=== PATIENT | female | born 1970 | race Caucasian/White ===

== ENCOUNTER 2021-02-13 14:15 | Emergency (ER) | payer BC, OTHER ==
[2021-02-13] MEDS ORDERED: SODIUM CHLORIDE 0.9% 1,000 ML IV STA (16:27)
[2021-02-13 16:57] LABS: Basophils # (A) 0.1 k/uL (0-0.2); Basophils % (A) 1 %; Eosinophils # (A) 0.3 k/uL (0-0.7); Eosinophils % (A) 2 %; HCT 46.5 % (34.0-46.0); Lymphocytes # (A) 2.8 k/uL (1.0-4.8); Lymphocytes % (A) 23 %; MCH 33.1 pg (25.0-35.0); MCHC 34.4 g/dL (31.0-37.0); MCV 96.2 fL (80.0-100.0); Mean Platelet Volume 7.8; Monocytes # (A) 0.5 k/uL (0-1.0); Monocytes % (A) 4 %; Neutrophils # (A) 8.5 k/uL (1.3-7.7); Neutrophils % (A) 69 %; Platelet Count 267 k/uL (150-450); RBC 4.84 m/uL (3.80-5.40); RDW 12.6 % (11.5-15.5); WBC 12.3 k/uL (3.8-10.6)
[2021-02-13] MEDS ORDERED: MECLIZINE 12.5 MG TAB PO STA (17:00)
[2021-02-13] MEDS ORDERED: ONDANSETRON 4 MG/2 ML VIAL IVP STA (17:00)
[2021-02-13 17:08] LABS: ALT 13 U/L (4-34); AST 33 U/L (14-36); African American GFR (CKD) >90 (>60 ml/min/1.73 sqM); Albumin 4.7 g/dL (3.5-5.0); Alkaline Phosphatase 78 U/L (38-126); Anion Gap 10 mmol/L; Blood Urea Nitrogen 11 mg/dL (7-17); Calcium 9.9 mg/dL (8.4-10.2); Carbon Dioxide 23 mmol/L (22-30); Chloride 106 mmol/L (98-107); Glucose 90 mg/dL (74-99); Non-African American GFR(CKD) >90 (>60 ml/min/1.73 sqM); Sodium 139 mmol/L (137-145); Total Bilirubin 0.7 mg/dL (0.2-1.3); Total Protein 8.1 g/dL (6.3-8.2)
--- NOTE | 2021-02-13 17:29 | CT ---
EXAMINATION TYPE: CT brain wo con DATE OF EXAM: 02/13/2021 HISTORY: Dizziness.. CT DLP: 1145.4 mGycm. Automated Exposure Control for Dose Reduction was Utilized. TECHNIQUE: CT scan of the head is performed without contrast. COMPARISON: None FINDINGS: There is no acute intracranial hemorrhage, midline shift, or mass effect identified. No extra-axial f luid collection. No ventriculomegaly. No depressed calvarial fracture. Mastoid air cells and paranasa l sinuses are well aerated. IMPRESSION: No acute intracranial hemorrhage, midline shift, or mass effect.
--- NOTE | 2021-02-13 17:33 | ED ---
Dizziness HPI - General Chief Complaint: Dizziness Stated Complaint: dizziness Time Seen by Provider: 02/13/21 16:20 Source: patient, RN notes reviewed Mode of arrival: ambulatory Limitations: no limitations - History of Present Illness Initial Comments: This a 50-year-old female presents emergency Department from PCPs office chief complaint dizziness. She's been having on and off dizziness spells over the last week. She states that is brought on by movements especially looking up quickly, laying down quickly. Patient states she gets really dizzy and which shows spins, she does extend past out. She has no associated chest pain, blurred vision, focal weakness, vomiting she has had some nausea no history of vertigo denies any current headache. Patient denies any trauma. - Related Data Home Medications Medication Instructions Recorded Confirmed Doxepin [SINEquan] 10 mg PO DAILY 02/13/21 02/13/21 Ibuprofen [Motrin Ib] 800 mg PO Q8H PRN 02/13/21 02/13/21 Mirtazapine [Remeron] 30 mg PO HS 02/13/21 02/13/21 Previous Rx's Medication Instructions Recorded Meclizine [Antivert] 25 mg PO TID PRN #15 tab 02/13/21 Allergies Allergy/AdvReac Type Severity Reaction Status Date / Time Penicillins Allergy Unknown Verified 02/13/21 16:54 Childhood Review of Systems ROS Statement: Those systems with pertinent positive or pertinent negative responses have been documented in the HPI. ROS Other: All systems not noted in ROS Statement are negative. Past Medical History Past Medical History: Asthma History of Any Multi-Drug Resistant Organisms: None Reported Past Surgical History: Section, Tubal Ligation Past Psychological History: Anxiety, Depression Smoking Status: Current every day smoker Past Alcohol Use History: Occasional Past Drug Use History: Marijuana General Exam Limitations: no limitations General appearance: alert, in no apparent distress Head exam: Present: atraumatic, normocephalic, normal inspection Eye exam: Present: normal appearance, PERRL, EOMI. Absent: scleral icterus, conjunctival injection, periorbital swelling ENT exam: Present: normal exam, normal oropharynx, mucous membranes moist Neck exam: Present: normal inspection, full ROM. Absent: tenderness, meningismus, lymphadenopathy Respiratory exam: Present: normal lung sounds bilaterally. Absent: respiratory distress, wheezes, rales, rhonchi, stridor Cardiovascular Exam: Present: regular rate, normal rhythm, normal heart sounds. Absent: systolic murmur, diastolic murmur, rubs, gallop, clicks Neurological exam: Present: alert, oriented X3, CN II-XII intact, reflexes normal. Absent: motor sensory deficit Skin exam: Present: warm, dry, intact, normal color. Absent: rash Course Vital Signs 02/13/21 02/13/21 15:06 16:04 Temperature 98 F Pulse Rate 87 93 Respiratory 20 18 Rate Blood Pressure 150/98 165/89 O2 Sat by Pulse 99 98 Oximetry EKG Findings - EKG Comments: EKG Findings:: EKG performed at 15:23 normal sinus rhythm rate of 75 MS 148 QRS 106 QTC is QTC 400 [id number] Medical Decision Making - Medical Decision Making 30-year-old female presented for intermittent dizziness. Patient symptoms are exacerbated by movements. Patient has a normal neuro exam and H is [address] unremarkable labs unremarkable. Patient we discharged with Antivert. - Lab Data Result diagrams: 02/13/21 16:40 02/13/21 16:40 Lab Results 02/13/21 02/13/21 02/13/21 Range/Units 16:40 16:40 16:40 WBC 12.3 H (3.8-10.6) k/uL RBC 4.84 (3.80-5.40) m/uL Hgb 16.0 (11.4-16.0) gm/dL Hct 46.5 H (34.0-46.0) % MCV 96.2 (80.0-100.0) fL MCH 33.1 (25.0-35.0) pg MCHC 34.4 (31.0-37.0) g/dL RDW 12.6 (11.5-15.5) % Plt Count 267 (150-450) k/uL MPV 7.8 Neutrophils % 69 % Lymphocytes % 23 % Monocytes % 4 % Eosinophils % 2 % Basophils % 1 % Neutrophils # 8.5 H (1.3-7.7) k/uL Lymphocytes # 2.8 (1.0-4.8) k/uL Monocytes # 0.5 (0-1.0) k/uL Eosinophils # 0.3 (0-0.7) k/uL Basophils # 0.1 (0-0.2) k/uL Sodium 139 (137-145) mmol/L Potassium 4.0 (3.5-5.1) mmol/L Chloride 106 (98-107) mmol/L Carbon Dioxide 23 (22-30) mmol/L Anion Gap 10 mmol/L BUN 11 (7-17) mg/dL Creatinine 0.68 (0.52-1.04) mg/dL Est GFR (CKD-EPI)AfAm >90 (>60 ml/min/1.73 sqM) Est GFR (CKD-EPI)NonAf >90 (>60 ml/min/1.73 sqM) Glucose 90 (74-99) mg/dL Calcium 9.9 (8.4-10.2) mg/dL Total Bilirubin 0.7 (0.2-1.3) mg/dL AST 33 (14-36) U/L ALT 13 (4-34) U/L Alkaline Phosphatase 78 (38-126) U/L Troponin I <0.012 (0.000-0.034) ng/mL Total Protein 8.1 (6.3-8.2) g/dL Albumin 4.7 (3.5-5.0) g/dL Disposition Clinical Impression: Vertigo Disposition: HOME SELF-CARE Condition: Stable Instructions (If sedation given, give patient instructions): Vertigo (ED) Additional Instructions: Please return to the Emergency Department if symptoms worsen or any other concerns. Prescriptions: Meclizine [Antivert] 25 mg PO TID PRN #15 tab PRN Reason: Vertigo Is patient prescribed a controlled substance at d/c from ED?: No Referrals: Lan Ramírez MD [Primary Care Provider] - 1-2 days Time of Disposition: 17:58
[2021-02-13 18:08] VITALS: BP 142/87; PULSE 76; RESP 16; TEMP 98.4
[2021-02-13 18:34] LABS: Appearance,Urine Clear (Clear); Bilirubin,Urine Negative (Negative); Blood,Urine Small (Negative); Color,Urine Light Yellow; Glucose,Urine (UA) Negative (Negative); Ketones,Urine Negative (Negative); Leukocyte Esterase,Urine Negative (Negative); Nitrite,Urine Negative (Negative); Protein,Urine Negative (Negative); RBC,Urine 3 /hpf (0-5); Specific Gravity,Urine 1.005 (1.001-1.035); Squamous Epithelial Cell,Urine <1 /hpf (0-4); Urobilinogen,Urine <2.0 mg/dL (<2.0)
== END 2021-02-13 18:10 | disposition home or self-care (01) ==
LOC: EC 14:15
DX: R42 Dizziness and giddiness (principal); J45.909 Unspecified asthma, uncomplicated; F41.9 Anxiety disorder, unspecified; F32.9 Major depressive disorder, single episode, unspecified; F17.200 Nicotine dependence, unspecified, uncomplicated; F12.90 Cannabis use, unspecified, uncomplicated; Z88.0 Allergy status to penicillin; Z98.51 Tubal ligation status
CPT/HCPCS: 99284; 96374; 96361; 36415; 93005; 80053; 84484; 85025; 81001; 70450; J2405

== ENCOUNTER → 2024-04-06 | Outpatient (CLI) | payer OTHER ==
--- NOTE | 2024-04-06 11:03 | MM ---
Reason for Exam: Screening (asymptomatic). Last mammogram was performed 10 year(s) and 4 month(s) ago. Patient History: Menarche at age 10. First Full-Term at age 27. Postmenopausal. Risk Values: Ana 5 year model risk: 1.4%. NCI Lifetime model risk: 10.1%. Prior Study Comparison: 12/10/2013 Bilateral Screening Mammogram, [facility]. Tissue Density: The breasts are heterogeneously dense, which may obscure small masses. Findings: Analyzed By CAD. Right breast: There is no suspicious group of microcalcifications or new suspicious mass. Left breast: There is no suspicious group of microcalcifications or new suspicious mass. Overall Assessment: Negative, BI-RAD 1 Management: Screening Mammogram of both breasts in [address] [facility] will attempt to contact patient to return for supplemental views and ultrasound if indicated. Patient should continue monthly self-breast exams. A clinical breast exam by your physician is recommended on an annual basis. This exam should not preclude additional follow-up of suspicious palpable abnormalities. Note on Ana scores and lifetime risk: 1. A Ana score greater than 3% is considered moderate risk. If this is the case, consider specialist referral to assess eligibility for a risk reducing agent. 2. If overall lifetime risk for the development of breast cancer is 20% or higher, the patient may qualify for future screening with alternating mammogram and breast MRI. [facility], , 04/06/2024 11:01 AM. Electronically signed and approved by: Kenneth Menendez DO
--- NOTE | 2024-04-06 11:10 | CTL ---
EXAMINATION TYPE: CT Low Dose Lung DATE OF EXAM: 04/06/2024 9:43 AM CLINICAL INDICATION: Female, 53 years old with history of Z12.2 LUNG CA SCR F17.210 CURRENT; current smoker 1/2-1PPD x40 years, history of tobacco use. COMPARISON: None. TECHNIQUE: Multiple axial non-contrast scans were obtained from approximately the lung apices through the upper abdomen. Coronal and sagittal reformatted images were obtained. Low dose technique was uti lized. MIP were created on a separate workstation and submitted for review. CT DLP: 59 mGycm, Automated exposure control for dose reduction was used. CT Contrast: Contrast used: None Oral contrast used: None FINDINGS: Lack of intravenous contrast and low dose technique limits the evaluation of the vascular and soft ti ssue structures. LUNGS: No evidence of pulmonary fibrosis. No evidence of focal consolidation, pneumothorax or pleural effusion. Centrilobular emphysema changes. Nodules: RUL: None. RML: None. RLL: None. ARELY: There is solid nodule measuring 5 mm with some groundglass around the periphery. Image 16. LLL: None. AIRWAY: Patent and unremarkable. HEART: Size within normal limits. MEDIASTINUM: No gross evidence of adenopathy. VASCULATURE: No aortic aneurysm. MUSCULOSKELETAL: No acute osseous abnormalities SOFT TISSUES/LYMPH NODES: Unremarkable. LOWER NECK: No significant findings. UPPER ABDOMEN: No significant findings. IMPRESSION: 1. Left upper lobe 5 mm nodule with groundglass opacities along the periphery. Follow-up in 6 months recommended to ensure stability.. 2. Mild emphysema. CT LUNG RAD AND CT CHEST RECOMMENDATION: Lung-Rad 3 Probably Benign: 6 month follow-up LDCT. S Modifier (other clinically significant findings): None Recommend smoking cessation (if current smoker), or continuation of smoking cessation (if prior smoke r). Annual screening for lung cancer with low-dose computed tomography is recommended in adults ages 55 to 77 years who have a 30 pack-year smoking history and currently smoke or have quit within the pa st 15 years. Screening should be discontinued once a person has not smoked for 15 years or develops a health problem that substantially limits life expectancy or the ability or willingness to have curat xu lung surgery. Lung rads 2021 [email or web address] [facility], , 04/06/2024 11:07 AM
--- NOTE | 2024-04-06 11:50 | US ---
EXAMINATION TYPE: US carotid duplex BILAT DATE OF EXAM: 04/06/2024 COMPARISON: NONE CLINICAL INDICATION: Female, 53 years old with history of Z91.89 OTHER SPECIFIED PERSONAL RISK FACTOR S; vertigo Additional History: R42* Dizziness TECHNIQUE: Grayscale, color Doppler and spectral Doppler evaluation of the bilateral carotid systems and vertebral arteries.Indirect Doppler criteria was utilized. FINDINGS: EXAM MEASUREMENTS: RIGHT: Peak Systolic Velocity (PSV) cm/sec ----- Right CCA: 99.7 ----- Right ICA: 120 ----- Right ECA: 332.4 ICA/CCA ratio: 1.2 RIGHT: End Diastole cm/sec ----- Right CCA: 35.7 ----- Right ICA: 54.6 ----- Right ECA: 91.7 LEFT: Peak Systolic Velocity (PSV) cm/sec ----- Left CCA: 92 ----- Left ICA: 120.5 ----- Left ECA: 115.7 ICA/CCA ratio: 1.3 LEFT: End Diastole cm/sec ----- Left CCA: 35.2 ----- Left ICA: 39.7 ----- Left ECA: 28.4 VERTEBRALS (direction of flow): Right Vertebral: Antegrade Left Vertebral: Antegrade Rhythm: Normal [employer] NOTES: No significant stenosis seen IMPRESSION: Right: Less than 50% stenosis of the carotid bifurcation. Normal (no stenosis)=ICA PSV < 125 cm/s: ra rowena < 2.0: ICA EDV<40 cm/s. Left: Less than 50% stenosis of the carotid bifurcation. Normal (no stenosis)=ICA PSV < 125 cm/s: rat io < 2.0: ICA EDV<40 cm/s. Criteria for Assigning % of Stenosis / Diameter reduction (Estimation based on the indirect measurements of the internal carotid artery velocities (ICA PSV). 1. Normal (no stenosis)=ICA PSV < 125 cm/s: ratio < 2.0: ICA EDV<40 cm/s. 2. Less than 50% stenosis=ICA PSV < 125 cm/s: ratio < 2.0: ICA EDV<40 cm/s. 3. 50 to 69% stenosis=ICA PSV of 125 to 230 cm/s: ration 2.0 ? 4.0: ICA EDV 40-100 cm/s. 4. Greater than 70% stenosis to near occlusion= ICA PSV > 230 cm/s: ratio > 4.0: ICA EDV > 100 cm/s. 5. Near occlusion= ICA PSV velocities may be low or undetectable: variable ratio and ICA EDV. 6. Total occlusion=unable to detect flow. [facility], , 04/06/2024 11:48 AM
== END | disposition home or self-care (01) ==
LOC: RADCTMAIN 09:03
PROVIDERS: ATTEND Family Medicine
DX: Z12.31 Encounter for screening mammogram for malignant neoplasm of breast (principal); Z12.2 Encounter for screening for malignant neoplasm of respiratory organs; R92.333 Mammographic heterogeneous density, bilateral breasts; F17.210 Nicotine dependence, cigarettes, uncomplicated; I65.23 Occlusion and stenosis of bilateral carotid arteries; J43.9 Emphysema, unspecified; Z78.0 Asymptomatic menopausal state
CPT/HCPCS: 71271; 77063; 77067; 93880

== ENCOUNTER → 2024-11-30 | Outpatient (CLI) | payer OTHER ==
--- NOTE | 2024-12-03 08:26 | CTL ---
EXAMINATION TYPE: CT Low Dose Lung DATE OF EXAM: 11/30/2024 10:18 AM COMPARISON: 04/06/2024 SCREENING VISIT: Initial CT DIAGNOSTIC QUALITY: Satisfactory CLINICAL INDICATION: Female, 54 years old with history of tobacco dependent, Current smoker, 1/2ppd x 40 years hx COPD, Lung cancer screening, History of tobacco use. TECHNIQUE: Low dose computed tomography scan was performed through the chest at 1 mm thick sections a nd reconstructed images in the coronal plane at 1 mm thick sections. Contrast used: mL of , (none if empty) Oral contrast used: (none if empty) CT DLP: 101.80 mGycm, Automated exposure control for dose reduction was used. CT CTDI: 2.7 mGy, Automated exposure control for dose reduction was used. FINDINGS: LUNG NODULES: Present, detailed below: 1. Couple of punctate calcifications in the periphery of the right apex. Series 4 image 37. These may be new. 2. There is a new 0.3 cm nodule posterior right apex. Series 4 image 53. 3. There is a 0.5 cm nodule peripheral right upper lung. Series 4 image 79. Present previously. 4. There is a large opacification to the medial anterior left upper lung extending along the mediasti nal border. This area measures 5.0 x 9.0 cm. Atelectasis or mass should be considered. LUNGS: COPD: Severity: None Fibrosis: Severity: None Lymph nodes: There are multiple enlarged lymph nodes within the mediastinum Other findings: None RIGHT PLEURAL SPACE: Effusion: None Calcification: None Thickening: None Pneumothorax: None LEFT PLEURAL SPACE: Effusion: None Calcification: None Thickening: None Pneumothorax: None HEART: Other: Ascending thoracic aorta at the level the main pulmonary artery measures 2. cm. The main pulm onary artery at the bifurcation measures 2.5 cm. Heart Size: Normal Coronary calcification: Mild coronary artery calcifications present. Pericardial effusion: There is a moderate pericardial effusion. OTHER FINDINGS: Upper abdomen: Normal Bony thorax: Normal Supraclavicular region: Normal IMPRESSION: 1. New large area of atelectasis or mass medial left anterior upper lung field. Multiple enlarged lym ph nodes are now present within the mediastinum moderate pericardial effusion is present. Additional workup recommended. FOLLOW UP CT CHEST RECOMMENDATION: Consider PET/CT. CT LUNG RAD: Lung-Rad 4B Suspicious [facility], Workstation: [employer], 12/03/2024 8:24 AM
== END | disposition home or self-care (01) ==
LOC: RADCTMAIN 09:26
PROVIDERS: ATTEND Family Medicine
DX: Z12.2 Encounter for screening for malignant neoplasm of respiratory organs (principal); F17.210 Nicotine dependence, cigarettes, uncomplicated; I31.39 Other pericardial effusion (noninflammatory); R59.0 Localized enlarged lymph nodes
CPT/HCPCS: 71271

== ENCOUNTER → 2024-12-14 | Outpatient (CLI) | payer OTHER ==
--- NOTE | 2024-12-17 17:05 | PE ---
EXAMINATION TYPE: PET CT fusion skull to thigh DATE OF EXAM: 12/14/2024 CLINICAL INDICATION:Female, 54 years old with history of R59.0 Localized enlarged lymph nodes; TECHNIQUE: Following the intravenous administration of 8.57 mCi of F-18 FDG, whole body images are performed from the skull base to the midthigh. Images are reviewed on the computer in the coronal, a xial, and sagittal planes. Reconstructed rotating images are created on independent workstation and reviewed on the computer. A non-contrast CT is performed in conjunction with the PET scan. Glucose level 105 mg/dL CT DLP: 870.7 mGycm, Automated exposure control for dose reduction was used. COMPARISON: CT 11/30/2024, 04/06/2024, PET/CT None, MRI: None FINDINGS: Mediastinal SUV mean is 2.1. Hepatic parenchyma SUV mean is 2.7. SKULL BASE AND NECK: Enlarged bilateral supraclavicular lymph nodes with left greater than right. Largest on the right is 1.3 cm with a maximum SUV of 14.5. Largest on the left measures 1.9 cm with a maximum SUV of 19.5. CHEST, MEDIASTINUM, AND HILAR REGION: Large left upper lobe pulmonary mass with extension to the mediastinum. Measures grossly 8.6 x 8.5 cm . Demonstrates a max SUV. There is surrounding atelectasis. Multiple enlarged mediastinal lymph nodes extending into the left pulmonary hilum. Examples include a right precarinal lymph node measuring 1.4 cm with a max SUV of 19 2. And a subcarinal lymph node nery suring 1.9 cm short axis with a maximum SUV of 18.5. Left axillary 6 mm nodule with FDG activity. Demonstrates a maximum SUV of 6.7. There are 2 right axillary nodules with largest measured 1.3 cm. Demonstrates a maximum SUV of 9.8. ABDOMEN AND PELVIS: Focal region of radiotracer uptake identified within the pancreatic body with a maximum SUV of 7.2. Left lateral lower flank subcutaneous tissue nodule measuring 6 mm with a max SUV of 3.1. Focal region of FDG activity within the left lower pelvis and a max SUV of 10. Mildly prominent left external iliac chain lymph node with a maximum SUV of 4.5. MUSCULOSKELETAL STRUCTURES: Scattered sclerotic osseous metastasis with examples including: Posterior right right ninth rib with a maximum SUV of 8.2. Left posterior 10th rib with a maximum SUV of 5.3. Right femoral head with a max SUV of 22.1. Right ischial tuberosity with a max SUV of 19.9. Right L1 pedicle with a max SUV of 17.7. L2 vertebral body with a maximum SUV of 12.4. OTHER CT: Trace left pleural effusion. Mild cardiomegaly. Small pericardial effusion. Atherosclerotic calcification of the aorta and its branches. IMPRESSION: 1. Large left upper lobe FDG enhancing mass with invasion into the mediastinum. Highly concerning fo r primary lung malignancy until proven otherwise. 2. Bilateral supraclavicular and mediastinal FDG avid metastatic adenopathy. Additional FDG activity within a left external iliac lymph node and in the left lower pelvis concerning for metastasis. 3. Scattered FDG avid osseous metastasis. 4. Few scattered subcutaneous tissue FDG avid metastatic nodules. 5. Nonspecific focal FDG activity within the pancreatic body. Could also represent a site of metasta tic disease. Consider further evaluation with MR. [facility], , 12/17/2024 5:03 PM
== END | disposition home or self-care (01) ==
LOC: RADPETMAIN 08:55
DX: C79.51 Secondary malignant neoplasm of bone (principal); R91.8 Other nonspecific abnormal finding of lung field; R59.0 Localized enlarged lymph nodes
CPT/HCPCS: 78815; A9552

== ENCOUNTER → 2024-12-26 | Outpatient (CLI) | payer OTHER ==
--- NOTE | 2024-12-26 15:02 | CT ---
EXAMINATION TYPE: CT brain wo/w con CT DLP: 2214.80 mGycm, Automated exposure control for dose reduction was used. DATE OF EXAM: 12/26/2024 2:44 PM COMPARISON: PET CT 12/14/2024, CT brain 02/13/2021. CLINICAL INDICATION:Female, 54 years old with history of C34.12 MALIGNANT NEOPLASM OF UPPER LOBE, LEF T BRON; PHH, Malignant neoplasm of lung, staging TECHNIQUE: Axial CT images of the brain were obtained followed by contrast enhanced axial images of t he brain with 100 cc of ISO-view 370 IV contrast. One or more CT dose reduction strategies were utili zed during this examination. Coronal and sagittal reformats reviewed. FINDINGS: Extra-axial spaces: No abnormal extra-axial fluid collections. Ventricular system: Within normal limits Cerebral parenchyma: No acute intraparenchymal hemorrhage or mass effect. The fletcher-white junction is well differentiated. Scattered hypoattenuating areas are seen within the periventricular white matte r. No abnormal enhancement is seen after the administration of intravenous contrast. Cerebellum: Unremarkable. Mass effect: No evidence of midline shift. Intracranial vasculature: Atherosclerotic calcifications of the intracranial vessels. Soft tissues: Normal. Calvarium/osseous structures: No depressed skull fracture. Paranasal sinuses and mastoid air cells: Clear. Visualized orbits: Orbital contents are intact. IMPRESSION: 1. No acute intracranial process and no evidence to suggest intracranial mass. 2. Nonspecific mild white matter changes, likely secondary to chronic small vessel ischemic disease. [facility], , 12/26/2024 3:00 PM
--- NOTE | 2024-12-26 15:13 | CT ---
EXAMINATION TYPE: CT hip RT wo con CT DLP: 437.60 mGycm, Automated exposure control for dose reduction was used. DATE OF EXAM: 12/26/2024 2:49 PM COMPARISON: PET/CT 12/14/2024 CLINICAL INDICATION:Female, 54 years old with history of C34.12 MALIGNANT NEOPLASM OF UPPER LOBE, LEF T BRON; PHH, R/o mets to femoral head RT hip, +PET. TECHNIQUE: Axial images were obtained of the right hip without the use of IV contrast. Additional co enrike and sagittal reformatted images and soft tissue and bone window were obtained for review. 3-D r econstruction was created on a separate workstation. FINDINGS: There is no evidence of fracture, subluxation, or dislocation. No distinct osseous lesion i dentified however there is focal FDG activity identified into focal regions within the right femoral head and also within the posterior acetabulum on recent PET/CT. Degenerative disc disease L5-S1 with disc space narrowing, endplate sclerosis, anterior osteophytosis and vacuum disc disease. No signific ant soft tissue swelling or joint effusion is identified. No focal muscular atrophy or edema is ident ified. No radiopaque foreign body identified. IMPRESSION: No CT evidence for osseous lesion within the right hip however there are few foci of FDG activity wit hin the right femoral head and right posterior acetabulum on recent PET/CT. This is still concerning for metastasis. Consider further evaluation with MRI if there is continuing clinical concern. [facility], , 12/26/2024 3:10 PM
== END | disposition home or self-care (01) ==
LOC: RADCTMAIN 13:58
PROVIDERS: ATTEND Internal Medicine Hematology & Oncology
DX: C34.12 Malignant neoplasm of upper lobe, left bronchus or lung (principal); R90.82 White matter disease, unspecified
CPT/HCPCS: 70470; 73700; Q9967

== ENCOUNTER 2025-01-01 12:57 | Day surgery (SDC) | payer OTHER ==
[2025-01-01 13:41] VITALS: RESP 16; TEMP 98.6
[2025-01-01 14:52] VITALS: BP 119/77; PULSE 104
--- NOTE | 2025-01-01 16:43 | US ---
EXAMINATION TYPE: US biopsy lymph node DATE OF EXAM: 01/01/2025 2:45 PM CLINICAL INDICATION:Female, 54 years old with history of C34.12 MALIGNANT NEOPLASM OF UPPER LOBE, LEF T BRON; COMPARISON: PET CT 12/14/2024 ATTENDING: Dr. Demarco TECHNIQUE: Ultrasound guided percutaneous biopsy left supraclavicular and cervical adenopathy biopsy needle. The patient was monitored by a qualified trained nurse independent of the Radiologist during sedation. FINDINGS: The procedure was explained to the patient. All questions were answered and informed consent was obta ined. The patient was placed supine and transverse ultrasound images of the left side of the neck and left supraclavicular region were obtained. A superficial, abnormally enlarged lymph node measuring 2.0 cm is identified along the lower left nec k. This is targeted for biopsy. The overlying skin was marked and prepped using sterile method. Timeout was taken per protocol. 1% lo kranthi lidocaine anesthesia was administered into the skin followed by lidocaine/epinephrine into the de eper subcutaneous tissues to the target site. A 6 cm, 18-gauge Bard biopsy needle was advanced with n eedle tip visualized within the abnormal lymph node. A total three 18-gauge core biopsies were obtained, 2 were placed in formalin solution, and one was p laced on Telfa pad. These are sent to pathology. The needle was removed. Other additional ultrasound scanning shows no abnormal fluid collection or ev ident complication. Hemostasis was obtained and a dressing was placed. Patient was kept for postprocedure observation in stable condition. IMPRESSIONS: Status post ultrasound guided biopsy of abnormally enlarged lower left cervical lymph node. Pathology results pending. [facility], , 01/01/2025 4:41 PM
== END 2025-01-01 14:45 | disposition home or self-care (01) ==
LOC: RADPROMAIN 12:57
PROVIDERS: ATTEND Internal Medicine Hematology & Oncology
DX: C77.3 Secondary and unspecified malignant neoplasm of axilla and upper limb lymph nodes (principal); C34.12 Malignant neoplasm of upper lobe, left bronchus or lung
CPT/HCPCS: 36415; 38505; 76942; 88305; 88341; 88342